=== PATIENT | female | born 1965 | race Caucasian/White ===

== ENCOUNTER → 2020-01-29 | Outpatient (CLI) | payer OTHER | LOC: LAB 01-28 12:36 | DX: Z20.828 Contact with and (suspected) exposure to other viral communicable diseases (principal) ==

== ENCOUNTER → 2020-05-13 | Outpatient (CLI) | payer OTHER | LOC: MAMMO 08:21 | DX: Z12.31 Encounter for screening mammogram for malignant neoplasm of breast (principal) ==

== ENCOUNTER → 2021-06-16 | Outpatient (CLI) | payer OTHER | LOC: MAMMO 15:30 | DX: Z12.31 Encounter for screening mammogram for malignant neoplasm of breast (principal); M81.0 Age-related osteoporosis without current pathological fracture ==

== ENCOUNTER → 2021-11-23 | Outpatient (CLI) | payer OTHER | LOC: RAD 10:08 | DX: S52.502A Unspecified fracture of the lower end of left radius, initial encounter for closed fracture (principal); W19.XXXA Unspecified fall, initial encounter ==

== ENCOUNTER → 2022-09-22 | Outpatient (CLI) | payer OTHER | LOC: MAMMO 09-09 07:45 | DX: Z12.31 Encounter for screening mammogram for malignant neoplasm of breast (principal) ==

== ENCOUNTER → 2024-02-01 | Outpatient (CLI) | payer OTHER | LOC: MAMMO 08:06 | DX: Z12.31 Encounter for screening mammogram for malignant neoplasm of breast (principal) ==